=== PATIENT | female | born 1935 | race Caucasian/White ===

== ENCOUNTER 2020-05-17 10:11 | Observation (INO) ==
--- NOTE | 2020-05-17 10:38 | ERNOTE ---
Neuro HPI ER Record Date of Service: 05/17/20 Presenting Symptoms: weakness, facial droop Time Seen by Provider: 05/17/20 10:18 Source: patient Exam Limitations: no limitations Immunizations: IMMUNIZATION HX Immunizations Up to Date Yes History of Influenza Vaccine No Hx Pneumococcal Vaccination No Allergies/Adverse Reactions: Allergies Allergy/AdvReac Type Severity Reaction Status Date / Time penicillin G Allergy Hives Verified 11/21/19 13:33 Home Medications: HOME MEDICATIONS calcium carbonate-vitamin D3 600 mg(1,500 mg)-400 unit chewable tablet 1 tab PO DAILY tab 09/13/18 [Last Taken Unknown] multivitamin 1 cap PO DAILY 09/13/18 [Last Taken Unknown] hydrochlorothiazide 12.5 mg tablet 12.5 mg PO DAILY #30 tab 02/02/20 [Last Taken Unknown] losartan 100 mg tablet 100 mg PO DAILY #30 tab 02/02/20 [Last Taken Unknown] alprazolam 0.25 mg tablet 0.25 mg PO BID PRN #60 tab 03/30/20 [Last Taken Unknown] amlodipine 5 mg tablet See Rx Instructions .ROUTE .COMPLEX #90 unspecified 05/10/20 [Last Taken Unknown] levothyroxine 50 mcg tablet 50 mcg PO DAILY #90 tab 05/11/20 [Last Taken Unknown] - Pain Score Pain Score #1 Pain Score: 0 - History of Present Illness Narrative: The patient is a 84 year old female who presents via POV for left facial droop which has been present since after midnight noted change. There are associated symptoms of left arm weakness. The patient denies pain. There are no alleviating factors. There are no aggravating factors. Previous treatments have included: none. The past medical history includes: HTN, hypothyroid and AFib. The social history is positive for former smoker. The patient has had no known ill contacts. Patient states she awoke during the night after midnight and felt that her face was different and her bottom place was not staying in her mouth correctly. Patient states she then got up this am and upon looking in the mirror around 0830 noticed facial droop to left side of face. Patient states she could feel this abnormality prior to looking in the mirror after midnight. Review of Systems - Review of Systems Constitutional: Present: no symptoms reported. Absent: recent illness, fever, chills, fatigue EYE: Absent: vision changes ENT: Absent: ear pain, nasal drainage, sore throat Respiratory: Present: no symptoms reported. Absent: shortness of breath, cough Cardiology: Present: no symptoms reported. Absent: chest pain Gastrointestinal/Abdominal: Present: no symptoms reported. Absent: nausea, vomiting, diarrhea, abdominal pain Genitourinary: Present: no symptoms reported. Absent: dysuria, decreased urinary output Musculoskeletal: Present: no symptoms reported Skin: Present: no symptoms reported. Absent: rash Neurological: Present: weakness, numbness. Absent: headache, dizziness/light- headedness All Other Systems: All systems neg except as marked Medical History (Last Reviewed 05/17/20 @ 10:27 by CHRIS Vigil) Breast mass, right Onset Date: Unknown benign Hypertension Onset Date: Unknown Hypothyroidism Onset Date: Unknown Cholelithiasis Onset Date: Unknown Gait abnormality Onset Date: ~07/27/14 Pes anserinus tendinitis and bursitis Onset Date: ~01/12/13 Surgical History: Surgical History (Last Reviewed 05/17/20 @ 10:27 by CHRIS Vigil) History of cataract surgery Onset Date: ~2009 bilateral History of colonoscopy Onset Date: ~08/13/04 Tinguely- negative screening History of partial thyroidectomy Onset Date: ~1965 History of right breast biopsy Onset Date: ~1989 benign History of surgical procedure on eye proper using laser Onset Date: ~2016 Dr. Sharma right eye History of tonsillectomy Onset Date: Unknown Family History: Family History (Last Reviewed 05/17/20 @ 10:27 by CHRIS Vigil) Father , 74 yrs Diabetes Mother , 95 yrs Heart disease Brother Cancer brain Sister Liver disease Heart disease Social History: (Last Reviewed 05/17/20 @ 10:27 by CHRIS Vigil) Social History: Marital status: / household members: none Service: No Tobacco: Smoking Status: Former smoker Alcohol: alcohol intake: never Substance Use: substance use type: does not use Dietary Habits: caffeine: Yes Physical Exam - Physical Exam General Appearance: Present: wd/wn, alert, mild distress, anxious, attentive for age Head Exam: Present: normal inspection, no evidence of injury Eye Exam: Normal inspection: bilateral, PERRL: bilateral, EOMI: bilateral Ears, Nose, Throat: Present: normal except -, other - left facial droop, tongue deviates to right Neck: Present: normal inspection, nontender Respiratory: Present: no respiratory distress, normal breath sounds, no accessory muscle use, lungs clear Cardiovascular/Chest: Present: irregularly irregular Gastrointestinal/Abdominal: Present: normal bowel sounds, nontender, nondistended, soft, no organomegaly Neurological Exam: Present: alert, oriented, normal mood/affect, normal cerebellar test, facial droop - left, motor weakness - left arm, minor drift. Absent: credit operations specialist II-XII nml as tested - left eyebrow droop, disoriented to person, disoriented to time, disoriented to place, disoriented to situation Skin Exam: Present: normal color, warm/dry [place] Coma Scale - Assess Eye Opening: Spontaneous Motor: Obeys Commands Verbal: Oriented - Total Coma Scale Total: 15 Initial Stroke Assessment - Date/Time of assessment Stroke Scale Date: 05/17/20 Stroke Scale Time: 10:18 - NIH Stroke Scale Level of Consciousness: Alert LOC Questions (Year and Age): Answers both correctly LOC Commands (open/close eyes/fist): Performs both correctly Lateral Gaze Paresis: None Visual Field Loss: No visual loss Facial Palsy: Partial facial paralysis Right Arm Motor (10 sec hold): No drift Left Arm Motor (10 sec hold): Drift Right Leg Motor (5 sec hold): No drift Left Leg Motor (5 sec hold): No drift Limb Ataxia (finger/nose heel/valdez): Absent Sensory Loss (pinprick arms/legs/face): No sensory loss Language Aphasia (description/naming/reading): No aphasia; normal Dysarthria (speech clarity): Normal articulation Neglect Inattention (visual/tactile/auditory/spatial/person): No neglect Initial Stroke Scale Score:: 3 Stroke Inclusion/Exclusion Cri - A Inclusion (Must answer Yes to meet): NO, pt noticed change sometime after midnight. - Inclusion Questions: Yes Onset of symptoms <3 1/2 hours of admission to ETC: No - Exclusion Questions: Major symptoms rapidly improving: No Seizure at onset of stroke: No SBP>185; DBP>110 at time treatment is to begin: No Patient received Heparin or Coumadin within 48 hours: No Stroke, head injury, major surgery, serious trauma in 3 mon.: No Previous intracranial hemmorhage: No Recent OR: No Known AV malformation or aneurysm: No Blood glucose <50mg/dl or >400mg/dl: No NIHSS Score <4 or >22 performed by physician: Yes Secondary Stroke Assessment - NIH Stroke Scale Level of Consciousness: Alert LOC Questions (Year and Age): Answers both correctly LOC Commands (open/close eyes/fist): Performs both correctly Lateral Gaze Paresis: None Visual Field Loss: No visual loss Facial Palsy: Partial facial paralysis - left Right Arm Motor (10 sec hold): No drift Left Arm Motor (10 sec hold): Drift Right Leg Motor (5 sec hold): No drift Left Leg Motor (5 sec hold): No drift Limb Ataxia (finger/nose heel/valdez): Absent Sensory Loss (pinprick arms/legs/face): No sensory loss Language Aphasia (description/naming/reading): No aphasia; normal Dysarthria (speech clarity): Normal articulation Neglect Inattention (visual/tactile/auditory/spatial/person): No neglect Secondary Stroke Scale Total:: 3 - Results of Tests Evidence of acute intracranial bleed: No Evidence of acute ischemic stroke: No CT result is negative: Yes CT results reported by : Tammi Platelets >100,000/ Hemogram normal: No PT<15 or INR <1.7: Yes PTT normal: Yes - TPA Decision Repeat NIHSS scale per ERP: Yes Onset of symptoms & inclusion/exclusion reviewed: Yes Phoned stroke team & permission to proceed given: No Is TPA administration indicated?: No Reasons for not ordering/administering TPA: Drug Tx not indicated - duration since onset of symptoms Progress - Date and Time Seen: Date and Time: 05/17/20 11:47 Review of imaging and lab results discussed with patient. Patient does have so me symptoms consistent with Valle's Palsy but increased concern for potential CVA as patient has delay to left upper extremity with slight weakness as well as right sided tongue deviation with protrusion. Will review case with due to onset of symptoms after midnight with no clear onset time frame for potential of admission with MRI evaluation to rule out CVA. 05/17/20 12:17 Review of testing and exam findings discussed with , will admit for observation with MRI testing to r/o CVA vs palsy. Patient verbalized understanding of plan and agrees. - Results and Orders Patient's Lab Results:: I have reviewed the patient's lab results. - Vital Signs Patient's Vital Signs:: I have reviewed the patient's vital signs. - EKG EKG #1 EKG: atrial fibrillation - rate 74 EKG read: Reviewed by me EKG Comments: No acute ST elevation, no acute ischemic change - X-Ray X-Ray #1 X-Ray: chest Interpretation: Reviewed by me X-ray Comments: IMPRESSION: No evidence of an acute infiltrate or effusion. Electronically signed by Gabriele Cadena MD. - CT/Ultrasound CT/Ultrasound Narrative: IMPRESSION: Remote and age-related changes without convincing evidence of an acute intracranial event. Up as clinically indicated. Electronically signed by Gabriele Cadena MD. Departure Clinical Impression: Facial droop Atrial fibrillation Qualifiers: Atrial fibrillation type: longstanding persistent Qualified Code(s): I48.11 - Longstanding persistent atrial fibrillation - Departure Disposition: Still a patient Condition: Fair
[2020-05-17 10:42] LABS: Hematocrit 40.6 % (37.0-47.0); Hemoglobin 13.5 gm/dL (12.5-16.0); Mean Cell Volume 95.1 fl (78-100); Mean Corpuscular Hemoglobin 31.6 pg (27-31); Mean Corpuscular Hgb Conc 33.3 g/dl (32-36); Mean Platelet Volume 12.5 fl (8-12.5); Neutrophil # 3.2 K/mm3 (1.3-6.0); Platelet Count 120 K/mm3 (150-450); Red Blood Count 4.27 M/mm3 (4.2-5.4); Red Cell Distribution Width 12.8 % (11.5-14.0)
[2020-05-17 10:58] LABS: Prothrombin Time (Patient) 10.6 Seconds (9.1-10.7)
[2020-05-17 10:59] LABS: Urine Bilirubin Negative (NEGATIVE); Urine Blood Negative /ul (NEGATIVE); Urine Ketone Negative (NEGATIVE); Urine Nitrite Negative (NEGATIVE); Urine Protein Negative (NEGATIVE); Urine Specific Gravity 1.025 SP.GR. (1.005-1.010); Urine Urobilinogen Normal (NORMAL)
[2020-05-17 10:59] LABS: Albumin * 3.3 gm/dl (3.4-5.0); Anion Gap 9.2 mmol/L (6.8-13.8); BUN/Creatinine Ratio 16.3 (9.0-21.6); Bilirubin, Total 1.7 mg/dL (0.0-1.1); Ca. Corrected For Albumin 9.2 mg/dL (8.4-10.2); Carbon Dioxide 27.6 mmol/L (24-32.6); Potassium 3.8 mmol/L (3.4-4.6)
[2020-05-17 11:01] LABS: INR 1.02 INR (0.92-1.08); Partial Thrombolplastin Time 25.7 Seconds (24-32)
[2020-05-17 11:08] LABS: Urine Appearance Clear (CLEAR); Urine Bacteria None Seen; Urine Color Yellow; Urine RBC None Seen /hpf (0-5); Urine WBC None Seen /hpf (0-5)
[2020-05-17] MEDS ORDERED: ALPRAZolam 0.25 MG TABLET PO PRN (14:54)
--- NOTE | 2020-05-17 17:06 | HP ---
Chief Complaint - Chief Complaint Date of Service: 05/17/20 Time of Service: 16:51 Chief Complaint: Left facial droop History of Present Illness: Carolyn Toledo is an 84-year-old white female with past medical history significant for hypertension, hypothyroidism, chronic atrial fibrillation, patient of Dr. Mixon, who was admitted on 05/17/2020 for left facial droop. The patient woke up shortly after midnight and noted the left side of her face drooping with associated symptoms of left arm weakness. She noticed that the bottom plate of her dentures is not staying correctly in her mouth and she was having problems with eating her breakfast. This morning she noted more prominently that she has left facial droop which was not there before midnight. She was then brought to our emergency room where a head CT scan showed no evidence of acute intracranial findings. She was in atrial fibrillation with rate controlled. She is not on any anticoagulation or antithrombotic. Because there was a question of a possible CVA the patient was admitted for further observation and evaluation. Her MRI showed - Remote and age-related changes without evidence of an acute intracranial event. No significant interval change. Her labs are essentially within normal limits. When seen the patient is eating salad and she feels like she is able to eat it better and the plate of her dentures is staying better in her mouth. Medical History (Last Updated 05/17/20 @ 13:45 by Emma Tran RN) COPD (chronic obstructive pulmonary disease) Breast mass, right Onset Date: Unknown benign Hypertension Onset Date: Unknown Hypothyroidism Onset Date: Unknown Cholelithiasis Onset Date: Unknown Gait abnormality Onset Date: ~07/27/14 Pes anserinus tendinitis and bursitis Onset Date: ~01/12/13 Surgical History: Surgical History (Last Reviewed 05/17/20 @ 13:41 by Emma Tran RN) History of cataract surgery Onset Date: ~2009 bilateral History of colonoscopy Onset Date: ~08/13/04 Tinguely- negative screening History of partial thyroidectomy Onset Date: ~1965 History of right breast biopsy Onset Date: ~1989 benign History of surgical procedure on eye proper using laser Onset Date: ~2016 Dr. Sharma right eye History of tonsillectomy Onset Date: Unknown Family History: Family History (Last Reviewed 05/17/20 @ 13:41 by Emma Tran RN) Father , 74 yrs Diabetes Mother , 95 yrs Heart disease Brother Cancer brain Sister Heart disease Liver disease Social History: (Last Reviewed 05/17/20 @ 13:42 by Emma Tran RN) Social History: Marital status: / household members: none Service: No Tobacco: Smoking Status: Former smoker Alcohol: alcohol intake: never Substance Use: substance use type: does not use Dietary Habits: caffeine: Yes Review Of Systems (GEN) - Review of Systems Generalized/Overall Review: Present: Weakness. Absent: Chills, Fever, Fatigue EENTM: Absent: Blurred Vision, Tearing, Double Vision Respiratory: Absent: Cough, Shortness of Breath, Wheezing Cardiac: Absent: Chest Pain, Edema, Palpitations Abdominal: Absent: Nausea, Vomiting, Hematemesis Genitourinary: Absent: Urgency, Frequency Musculoskeletal: Absent: Joint Pain, Back Pain Neurological: Absent: Anxiety, Depressed Skin: Absent: Lesions, Rash, Bruising Endocrine: Absent: Intolerance to Cold, Intolerance to Heat Misc: All systems neg except as marked Immunizations: IMMUNIZATION HX Immunizations Up to Date Yes History of Influenza Vaccine No Hx Pneumococcal Vaccination No Allergies/Adverse Reactions: Allergies Allergy/AdvReac Type Severity Reaction Status Date / Time penicillin G Allergy Mild Hives Verified 05/17/20 13:42 Home Medications: HOME MEDICATIONS hydrochlorothiazide 12.5 mg tablet 12.5 mg PO DAILY #30 tab 02/02/20 [Last Taken Unknown] losartan 100 mg tablet 100 mg PO DAILY #30 tab 02/02/20 [Last Taken Unknown] alprazolam 0.25 mg tablet 0.25 mg PO BID PRN #60 tab 03/30/20 [Last Taken Unknown] Amlodipine Besylate 5 mg PO DAILY 05/17/20 [Last Taken Unknown] Calcium Carbonate/Vitamin D3 [Calcium 600-Vit D3 800 Caplet] 1 ea PO DAILY 05/17/20 [Last Taken Unknown] Levothyroxine Sodium [Synthroid] 75 mcg PO DAILY 05/17/20 [Last Taken Unknown] Multivitamin 1 ea PO DAILY 05/17/20 [Last Taken Unknown] Exam - Exam Vital Signs: Vital Signs - Last Taken Temp 36.7 C 05/17/20 13:39 Pulse 72 05/17/20 14:44 Resp 16 05/17/20 13:39 BP 148/77 05/17/20 13:39 Pulse Ox 96 05/17/20 13:39 Constitutional: Present: Alert, Oriented x3, Cooperative, Elderly ENT Exam: Present: hearing grossly normal, other - No papulovesicular lesions in her ears, no otitis media/otitis externa Eye Exam: bilateral eye: PERRL, EOMI, left eye: normal inspection - Unable to close completely her left eye Neck: Present: supple. Absent: lymphadenopathy (R), lymphadenopathy (L) Respiratory: Present: normal breath sounds, No rales, No wheezing Cardiovascular/Chest: Present: no JVD, no murmur, irregularly irregular. Absent: JVD Abdomen: Present: Normal bowel sounds, soft, nontender, nondistended Extremity: Present: no calf tenderness. Absent: no pedal edema Neurologic: Present: no motor/sensory deficits - Of upper and lower extremities, oriented x 3, other - Positive left facial palsy, positive gag reflex Diagnostic Studies: Abnormal Lab Results 05/17/20 05/17/20 05/17/20 Range/Units 10:32 10:35 10:35 MCH 31.6 H (27-31) pg Plt Count 120 L (150-450) K/mm3 Monocytes % 9.8 H (0.0-9) % Lymphocytes # 1.32 L (1.5-3.5) k/mm3 ESR 17 H (0-15) mm/hr Est GFR (Non-Af Amer) (60-130) mL/min Random Glucose (70-110) mg/dL Total Bilirubin (0.0-1.1) mg/dL Albumin (3.4-5.0) gm/dl Urine Glucose (UA) 250 H (NEGATIVE) mg/dL 05/17/20 Range/Units 10:35 MCH (27-31) pg Plt Count (150-450) K/mm3 Monocytes % (0.0-9) % Lymphocytes # (1.5-3.5) k/mm3 ESR (0-15) mm/hr Est GFR (Non-Af Amer) 54 L (60-130) mL/min Random Glucose 219 H (70-110) mg/dL Total Bilirubin 1.7 H (0.0-1.1) mg/dL Albumin 3.3 L (3.4-5.0) gm/dl Urine Glucose (UA) (NEGATIVE) mg/dL Laboratory Results WBC 5.0 K/mm3 (4.0-10.5) 05/17/20 10:35 RBC 4.27 M/mm3 (4.2-5.4) 05/17/20 10:35 Hgb 13.5 gm/dL (12.5-16.0) 05/17/20 10:35 Hct 40.6 % (37.0-47.0) 05/17/20 10:35 MCV 95.1 fl (78-100) 05/17/20 10:35 MCH 31.6 pg (27-31) H 05/17/20 10:35 MCHC 33.3 g/dl (32-36) 05/17/20 10:35 RDW 12.8 % (11.5-14.0) 05/17/20 10:35 Plt Count 120 K/mm3 (150-450) L 05/17/20 10:35 MPV 12.5 fl (8-12.5) 05/17/20 10:35 Immature Gran % (Auto) 0.20 % (0.001-0.429) 05/17/20 10:35 Immature Gran # (Auto) 0.01 K/mm3 (0.000-0.0310) 05/17/20 10:35 Neutrophils % 63.0 % (42-75.0) 05/17/20 10:35 Lymphocytes % 26.4 % (20-51) 05/17/20 10:35 Monocytes % 9.8 % (0.0-9) H 05/17/20 10:35 Eosinophils % 0.0 % (0.0-3.0) 05/17/20 10:35 Basophils % 0.6 % (0.0-1.0) 05/17/20 10:35 Nucleated RBC % 0.0 k/mm3 (0-1) 05/17/20 10:35 Neutrophils # 3.2 K/mm3 (1.3-6.0) 05/17/20 10:35 Lymphocytes # 1.32 k/mm3 (1.5-3.5) L 05/17/20 10:35 Monocytes # 0.5 k/mm3 (0.0-1.0) 05/17/20 10:35 Eosinophils # 0.0 k/mm3 (0.0-0.7) 05/17/20 10:35 Absolute Basophils 0.0 k/mm3 (0.0-0.1) 05/17/20 10:35 ESR 17 mm/hr (0-15) H 05/17/20 10:35 PT 10.6 Seconds (9.1-10.7) 05/17/20 10:35 INR (Anticoag Therapy) 1.02 INR (0.92-1.08) 05/17/20 10:35 PTT (Suhail) 25.7 Seconds (24-32) 05/17/20 10:35 Sodium 137 mmol/L (132-142) 05/17/20 10:35 Plasma Sodium 139 mmol/L (130-142) 05/17/20 10:35 Potassium 3.8 mmol/L (3.4-4.6) 05/17/20 10:35 Chloride 104 mmol/L (97-106) 05/17/20 10:35 Carbon Dioxide 27.6 mmol/L (24-32.6) 05/17/20 10:35 Anion Gap 9.2 mmol/L (6.8-13.8) 05/17/20 10:35 BUN 17 mg/dL (3-23) 05/17/20 10:35 Creatinine 1.04 mg/dL (0.4-1.4) 05/17/20 10:35 Est GFR (Non-Af Amer) 54 mL/min (60-130) L 05/17/20 10:35 BUN/Creatinine Ratio 16.3 (9.0-21.6) 05/17/20 10:35 Random Glucose 219 mg/dL (70-110) H 05/17/20 10:35 Calcium 9.0 mg/dL (7.9-10.9) 05/17/20 10:35 Calcium Adj for Albumin 9.2 mg/dL (8.4-10.2) 05/17/20 10:35 Total Bilirubin 1.7 mg/dL (0.0-1.1) H 05/17/20 10:35 AST 18 U/L (0-48) 05/17/20 10:35 ALT 23 U/L (19-67) 05/17/20 10:35 Alkaline Phosphatase 63 U/L (50-170) 05/17/20 10:35 Total Protein 7.0 gm/dL (6.2-8.2) 05/17/20 10:35 Albumin 3.3 gm/dl (3.4-5.0) L 05/17/20 10:35 Urine Color Yellow 05/17/20 10:32 Urine Appearance Clear (CLEAR) 05/17/20 10:32 Urine pH 6.0 pH (5.0-7.0) 05/17/20 10:32 Ur Specific [place] 1.025 SP.GR. (1.005-1.010) 05/17/20 10:32 Urine Protein Negative mg/dL (NEGATIVE) 05/17/20 10:32 Urine Glucose (UA) 250 mg/dL (NEGATIVE) H 05/17/20 10:32 Urine Ketones Negative mg/dL (NEGATIVE) 05/17/20 10:32 Urine Blood Negative /ul (NEGATIVE) 05/17/20 10:32 Urine Nitrate Negative (NEGATIVE) 05/17/20 10:32 Urine Bilirubin Negative mg/dl (NEGATIVE) 05/17/20 10:32 Urine Urobilinogen Normal EU/dl (NORMAL) 05/17/20 10:32 Ur Leukocyte Esterase Negative /ul (NEGATIVE) 05/17/20 10:32 Urine RBC None seen /hpf (0-5) 05/17/20 10:32 Urine WBC None seen /hpf (0-5) 05/17/20 10:32 Ur Epithelial Cells 0-5 /hpf (0-5) 05/17/20 10:32 Urine Bacteria None seen (NONE) 05/17/20 10:32 Urine Culture Comments No culture indicated 05/17/20 10:32 SARS-CoV-2 (PCR) Not detected (NotDetected) 05/17/20 12:12 Assessment/Plan - Narrative Narrative: 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 Her CT scan and her MRI showed no acute intracranial process. She has had no fever or any recent viral infection. No ear or facial pain. No lesions. We will start patient on prednisone but will defer from starting her on any valacyclovir/acyclovir as i do not beleieve she has severe palsy. She will need some eyedrops as her left eye does not close completely and may need also some eye ophthalmic ointment when she sleeps at night. We will continue to observe patient overnight and will discharge her with neurology consult. Theoretically based on her Chads score she should be on an oral anticoagulant but she is already 84 years old and I will leave it up to her primary care physician to discuss the pros and cons especially with the NOACs. I did discuss this with he patient and daughter and she said her mother not want to be on Warfarin at that time . In the meantime we will start patient on a baby aspirin. - Assessment/Plan (1) Peripheral facial palsy Problem: Acute (2) Atrial fibrillation Problem: Chronic Qualifiers: Atrial fibrillation type: longstanding persistent Qualified Code(s): I48.11 - Longstanding persistent atrial fibrillation (3) Hypertension Problem: Chronic (4) Hypothyroidism (acquired) Problem: Chronic
[2020-05-17] MEDS ORDERED: GLYCERIN/PROPYLENE GLYCOL 150 DROP BTL EACHEYE PRN (17:27)
[2020-05-17] MEDS: predniSONE 20 MG TABLET PO SCH (17:51)
[2020-05-18] MEDS ORDERED: LEVOTHYROXINE SODIUM 75 MCG TABLET PO SCH (07:00)
[2020-05-18] MEDS: ASPIRIN 81 MG TAB.CHEW PO SCH ×2 (07:54→08:03)
[2020-05-18] MEDS: MULTIVITAMINS 1 CAP CAPSULE PO SCH ×2 (07:54→08:03)
[2020-05-18] MEDS: amLODIPine BESYLATE 5 MG TABLET PO SCH ×2 (07:54→08:03)
[2020-05-18] MEDS: predniSONE 20 MG TABLET PO SCH ×2 (07:54→08:03)
[2020-05-18] MEDS: HYDROCHLOROTHIAZIDE 12.5 MG CAPSULE PO SCH ×2 (07:55→08:03)
[2020-05-18] MEDS: LOSARTAN POTASSIUM 50 MG TABLET PO SCH ×2 (07:55→08:03)
--- NOTE | 2020-05-18 08:58 | DS ---
(1) Peripheral facial palsy Problem: Acute (2) Atrial fibrillation Problem: Chronic Qualifiers: Atrial fibrillation type: longstanding persistent Qualified Code(s): I48.11 - Longstanding persistent atrial fibrillation (3) Hypertension Problem: Chronic (4) Hypothyroidism (acquired) Problem: Chronic Date of Discharge:: 05/18/20 Hospital Course: Carolyn Toledo is an 84-year-old white female with past medical history significant for hypertension, hypothyroidism, chronic atrial fibrillation, patient of Dr. Mixon, who was admitted on 05/17/2020 for left facial droop. The patient woke up shortly after midnight and noted the left side of her face drooping with associated symptoms of left arm weakness. She noticed that the bottom plate of her dentures is not staying correctly in her mouth and she was having problems with eating her breakfast. This morning she noted more prominently that she has left facial droop which was not there before midnight. She was then brought to our emergency room where a head CT scan showed no evidence of acute intracranial findings. She was in atrial fibrillation with r ate controlled. She is not on any anticoagulation or antithrombotic. Because there was a question of a possible CVA the patient was admitted for further observation and evaluation. Her MRI showed - Remote and age-related changes without evidence of an acute intracranial event. No significant interval change. Her labs are essentially within normal limits. When seen the patient was ea pascual boyer and she feels like she is able to eat it better since the lower plate of her dentures is staying better in her mouth. She had moderate facial palsy- her left foread creases were shallower when aske to frown, she could not completely close left eyelids when asked to shit it tight (-2-3 mm opening). and she had shallow left nasolabial fold. I started her on oral prednisone but deferred from giving valcyclovir or acyclovir. We gave her saline eye drops and taped her left eye during her sleep. She is much better today and will discharge her with an appointment with Neurology. She does not want to be on aticioagulation for her AFib but agrees at least to be on baby ASA. Procedures Performed: none Results and Findings: Lab Pending Results 05/17/20 10:32: Urine Color Yellow, Urine Appearance Clear, Urine pH 6.0, Ur Specific [place] 1.025, Urine Protein Negative, Urine Glucose (UA) 250 H, Urine Ketones Negative, Urine Blood Negative, Urine Nitrate Negative, Urine Bilirubin Negative, Urine Urobilinogen Normal, Ur Leukocyte Esterase Negative, Urine RBC None seen, Urine WBC None seen, Ur Epithelial Cells 0-5, Urine Bacteria None seen, Urine Culture Comments No culture indicated 05/17/20 10:35: WBC 5.0, RBC 4.27, Hgb 13.5, Hct 40.6, MCV 95.1, MCH 31.6 H, MCHC 33.3, RDW 12.8, Plt Count 120 L, MPV 12.5, Immature Gran % (Auto) 0.20, Immature Gran # (Auto) 0.01, Neutrophils % 63.0, Lymphocytes % 26.4, Monocytes % 9.8 H, Eosinophils % 0.0, Basophils % 0.6, Nucleated RBC % 0.0, Neutrophils # 3.2, Lymphocytes # 1.32 L, Monocytes # 0.5, Eosinophils # 0.0, Absolute Basophils 0.0 05/17/20 10:35: ESR 17 H 05/17/20 10:35: PT 10.6, INR (Anticoag Therapy) 1.02, PTT ([place]) 25.7 05/17/20 10:35: Sodium 137, Plasma Sodium 139, Potassium 3.8, Chloride 104, Carbon Dioxide 27.6, Anion Gap 9.2, BUN 17, Creatinine 1.04, Est GFR (Non-Af Amer) 54 L, BUN/Creatinine Ratio 16.3, Random Glucose 219 H, Calcium 9.0, Calcium Adj for Albumin 9.2, Total Bilirubin 1.7 H, AST 18, ALT 23, Alkaline Phosphatase 63, Total Protein 7.0, Albumin 3.3 L 05/17/20 12:12: SARS-CoV-2 (PCR) Not detected Discharge Location: Home Disposition: Home self-care Condition: Stable Discharge Activity: Activity as tolerated Discharge Diet: Low salt - with aspiration precautions Referrals: Miranda Mixon MD [Primary Care Provider] - Additional Patient Instructions (free text): Please make an appointment with Neurology - [place] [facility]. Follow up with PCP in 1 week. Prescriptions (Any new or edited meds): Aspirin [Aspirin Chewable] 81 mg PO DAILY 30 Days #30 tab.chew Transmission Status: Pending to [place], [place] predniSONE [Prednisone] 60 mg PO DAILY 7 Days #21 tab Transmission Status: Pending to [place], [place] Complete Home Medications List: Complete Home Medication List: hydrochlorothiazide 12.5 mg tablet 12.5 mg PO DAILY #30 tab 02/02/20 losartan 100 mg tablet 100 mg PO DAILY #30 tab 02/02/20 alprazolam 0.25 mg tablet 0.25 mg PO BID PRN #60 tab 03/30/20 Amlodipine Besylate 5 mg PO DAILY 05/17/20 Calcium Carbonate/Vitamin D3 [Calcium 600-Vit D3 800 Cap[place]] 1 ea PO DAILY 05/17/20 Levothyroxine Sodium [Synthroid] 75 mcg PO DAILY 05/17/20 Multivitamin 1 ea PO DAILY 05/17/20 Aspirin [Aspirin Chewable] 81 mg PO DAILY 30 Days #30 tab.chew 05/18/20 Glycerin/Propylene Glycol [Artificial Tears] 1 drop EACHEYE Q1H PRN btl 05/18/20 predniSONE [Prednisone] 60 mg PO DAILY 7 Days #21 tab 05/18/20
[2020-05-18 11:52] VITALS: BP 151/77
== END 2020-05-18 11:45 | disposition home or self-care (01) ==
LOC: MS 10:11 → ER 10:11 → MS 13:11
PROVIDERS: ADMIT Internal Medicine; ATTEND Internal Medicine